=== PATIENT | female | born 1980 | race Caucasian/White ===

== ENCOUNTER 2021-02-13 14:34 | Outpatient (CLI) | payer BC | END 2021-02-13 14:35 | disposition home or self-care (01) | LOC: BICCT 14:34 | PROVIDERS: ATTEND Otolaryngology Plastic Surgery within the Head & Neck | DX: K11.8 Other diseases of salivary glands (principal); K11.1 Hypertrophy of salivary gland | CPT/HCPCS: 70491 ==

== ENCOUNTER 2021-02-18 13:57 | Outpatient (CLI) | payer BC | END 2021-02-18 13:58 | disposition home or self-care (01) | LOC: BICMAMMO 13:57 | PROVIDERS: ATTEND Student in an Organized Health Care Education/Training Program | DX: N63.21 Unspecified lump in the left breast, upper outer quadrant (principal); N63.10 Unspecified lump in the right breast, unspecified quadrant | CPT/HCPCS: G0279 ==

== ENCOUNTER 2021-07-28 11:05 | Outpatient (CLI) | payer BC ==
[2021-07-28 12:17] LABS: Anion Gap 11 mmol/L (10-20); BUN (Urea Nitrogen) 19 mg/dL (7.0-18.7); Calc. Creatinine Clearance 0 mL/min (70-130); Calcium 9.2 mg/dL (7.8-10.44); Carbon Dioxide 28 mmol/L (22-29); Chloride 104 mmol/L (98-107); Glucose 102 mg/dL (70-105); Potassium 4.3 mmol/L (3.5-5.1); Sodium 139 mmol/L (136-145)
[2021-07-28 23:07] LABS: SARS-CoV-2 PCR by NAA Not Detected (NotDetected)
== END 2021-07-28 11:06 | disposition home or self-care (01) ==
LOC: LABBT 11:05
PROVIDERS: ATTEND Surgery
DX: Z01.812 Encounter for preprocedural laboratory examination (principal); K40.90 Unilateral inguinal hernia, without obstruction or gangrene, not specified as recurrent; Z20.822 Contact with and (suspected) exposure to COVID-19
CPT/HCPCS: 80048; U0003; U0005

== ENCOUNTER 2021-07-31 08:55 | Day surgery (SDC) | payer BC ==
[2021-07-29 13:42] VITALS: BMI 20.3
[2021-07-31] MEDS ORDERED: Lidocaine 1% w/Epinephrine 1:100K 20 ML VIAL ONE (11:48)
[2021-07-31] MEDS ORDERED: Bupivacaine 0.25% 10 ML VIAL ONE (11:48)
[2021-07-31] MEDS ORDERED: ceFAZolin (BATCH) 2 GM/100 ML BAG ONE (11:59)
[2021-07-31] MEDS ORDERED: Midazolam HCl 2 mg/2 ml Vial ONE (12:01)
[2021-07-31] MEDS ORDERED: fentaNYL Citrate/PF 100 MCG/2 ML SYRINGE ONE (12:09)
[2021-07-31] MEDS ORDERED: Glycopyrrolate 0.2 MG/ML 5 ML SYRINGE ONE (12:21)
[2021-07-31] MEDS ORDERED: Dexamethasone 20 MG/5 ML VIAL ONE (12:21)
[2021-07-31] MEDS ORDERED: PROPOFOL 200 MG/20 ML VIAL ONE (12:21)
[2021-07-31] MEDS ORDERED: Ondansetron PF 4 MG/2 ML Vial ONE (12:21)
[2021-07-31] MEDS ORDERED: Rocuronium Bromide 10 MG/ML (10ML VIAL) ONE (12:21)
[2021-07-31] MEDS ORDERED: Bupivacaine PF 0.5% 30 ML VIAL ONE (12:23)
== END 2021-07-31 14:20 | disposition home or self-care (01) ==
LOC: SDC 08:55
PROVIDERS: ATTEND Surgery
PROC: 0YU60JZ Supplement Left Inguinal Region with Synthetic Substitute, Open Approach (ICD-10-PCS; principal; 2021-07-31)
DX: K40.90 Unilateral inguinal hernia, without obstruction or gangrene, not specified as recurrent (principal); Z79.3 Long term (current) use of hormonal contraceptives; Z79.899 Other long term (current) drug therapy; Z88.1 Allergy status to other antibiotic agents; Z88.8 Allergy status to other drugs, medicaments and biological substances
CPT/HCPCS: A4306; C1781; J0690; J1100; J2250; J2405; J2704; S0020

== ENCOUNTER 2021-10-03 12:44 | Outpatient (CLI) | payer BC | END 2021-10-03 12:45 | disposition home or self-care (01) | LOC: BICRAD 12:44 | PROVIDERS: ATTEND Family Medicine | DX: R05.9 Cough, unspecified (principal) | CPT/HCPCS: 71046 ==

== ENCOUNTER 2022-10-22 14:05 | Outpatient (CLI) | payer BC | END 2022-10-22 14:06 | disposition home or self-care (01) | LOC: RAD 14:05 | PROVIDERS: ATTEND Chiropractor | DX: M54.6 Pain in thoracic spine (principal); M54.2 Cervicalgia; M54.50 Low back pain, unspecified; M50.322 Other cervical disc degeneration at C5-C6 level; M43.8X4 Other specified deforming dorsopathies, thoracic region | CPT/HCPCS: 72040; 72072; 72100 ==

== ENCOUNTER 2023-08-04 10:22 | Outpatient (CLI) | payer BC | END 2023-08-04 10:23 | disposition home or self-care (01) | LOC: SCSRAD 10:22 | PROVIDERS: ATTEND Family Medicine | DX: J40 Bronchitis, not specified as acute or chronic (principal) | CPT/HCPCS: 71046 ==